=== PATIENT | male | born 2000 ===

== ENCOUNTER 2022-01-12 14:06 | Emergency (ER) | payer OTHER ==
[~2022-01-12] VITALS: Ht 177.8 cm; Wt 56.7 kg
== END 2022-01-12 14:33 | disposition home or self-care (01) ==
LOC: EMR PED 14:06 → ER 14:06 → EMR PED 14:24
DX: S61.220A Laceration with foreign body of right index finger without damage to nail, initial encounter (principal); X58.XXXA Exposure to other specified factors, initial encounter; Y93.9 Activity, unspecified; Y92.69 Other specified industrial and construction area as the place of occurrence of the external cause